=== PATIENT | male | born 1965 | race Caucasian/White ===

== ENCOUNTER 2017-06-17 18:27 | Emergency (ER) | payer OTHER ==
[~2017-06-17] VITALS: Ht 177.8 cm; Wt 106.6 kg
[~2017-06-17 18:27] MED LIST: ASPIRIN325; CLEOCIN HCL300 MG PO; IBUPROFEN 600600 M1; NORCO 5-325 TA1 EACH PO
[2017-06-17] MEDS ORDERED: CLINDAMYCIN HC150 MG PO (18:50)
[2017-06-17] MEDS ORDERED: HYDROCODONE-AP1 EAC6 PO (18:50)
[2017-06-17] MEDS ORDERED: PERIDEX 0.12%473 M1 PO (18:50)
[2017-06-17] MEDS ORDERED: NAPROSYN500 MG PO (18:50)
[2017-06-17 18:53] VITALS: BP 163/101
== END 2017-06-17 18:54 | disposition home or self-care (01) ==
LOC: M.ERS 18:27
DX: K02.9 Dental caries, unspecified (principal); K05.10 Chronic gingivitis, plaque induced; Z88.0 Allergy status to penicillin

== ENCOUNTER 2020-05-27 18:12 | Emergency (ER) | payer OTHER ==
[~2020-05-27] VITALS: Ht 177.8 cm; Wt 104.3 kg
[~2020-05-27 18:12] MED LIST changes: +CLINDAMYCIN HC150 MG PO; +HYDROCODONE-AP1 EAC6 PO; +NAPROSYN500 MG PO; +PERIDEX 0.12%473 M1 PO
[2020-05-27] MEDS ORDERED: CLEOCIN HCL300 MG PO ×2 (18:39→18:40)
[2020-05-27] MEDS ORDERED: HYDROCODON-ACE1 EAC7 PO (18:40)
[2020-05-27 18:52] VITALS: BP 161/103
== END 2020-05-27 18:53 | disposition home or self-care (01) ==
LOC: M.ERS 18:12
DX: K04.7 Periapical abscess without sinus (principal); R19.6 Halitosis; Z88.0 Allergy status to penicillin